=== PATIENT | male | born 1960 | race Caucasian/White ===

== ENCOUNTER 2017-01-29 06:21 | Emergency (ER) | payer OTHER ==
[~2017-01-29] VITALS: Ht 167.6 cm; Wt 62.0 kg
[~2017-01-29 06:21] MED LIST: FOLI0.8C PO; GARL200T PO; LORA-441 PO; MULT-236 PO; WHEAT GRASS
[2017-01-29 06:24] VITALS: Ht 167.6 cm; Wt 62.0 kg
--- NOTE | 2017-01-29 07:13 | ERD ---
ER Documentation Chief Complaint Date/Time DATE: 01/29/17 TIME: 07:06 Chief Complaint weakness x 1 year HPI This is a 56-year-old male no significant past medical history who presents to the emergency room because of generalized weakness and lightheadedness for 1.5 years. He states that he has had thorough investigations and evaluation through primary care physician, multiple ER visits including a ER visit the [facility] 2 weeks ago. Additionally he has seen a hospital staff pharmacist with echo and Holter. Workup has been unrevealing. The patient presents today because symptoms have been persistent. He denies any fevers or chills, no chest pain. Occasionally has palpitations when he wakes up in the morning that resolved throughout the day. He denies any melena, he states that he has had negative Hemoccult in the past. He is also describing occasional headaches that are occipital but not present currently. Not sudden onset. He is a non- smoker, no significant weight loss. The patient states that he feels weak when doing regular activities like going to the grocery store. He states negative thyroid testing as an outpatient as well. ROS All systems reviewed and are negative except as per history of present illness. Medications Home Meds Reported Medications Lorazepam* (Ativan*) 0.5 Mg Tablet, 0.5 MG PO BID Y for CHEST PAIN, #30 TAB 12/02/15 [Wheat Grass] No Conflict Check 12/02/15 Garlic (GARLIC) 200 Mg Tablet, 200 MG PO, TAB 12/02/15 Folic Acid (Folic Acid) 0.8 Mg Capsule, 0.8 MG PO, CAP 12/02/15 Multivitamins (Multi-Day Vitamin) 1 Tab Tablet, 1 TAB PO DAILY, TAB 12/02/15 Allergies Allergies: Coded Allergies: No Known Allergy (Unverified , 12/02/15) PMhx/Soc History of Surgery: Yes (1970 SX RT. KNEE, 1970 SX LT HAND, AT [facility]) Anesthesia Reaction: No Hx Neurological Disorder: No Hx Respiratory Disorders: No Hx Cardiac Disorders: Yes (HRT PALPATATIONS , HTN ) Hx Psychiatric Problems: No Hx Miscellaneous Medical Probl: No Hx Alcohol Use: No Hx Substance Use: No Hx Tobacco Use: No Smoking Status: Never smoker FmHx Family History: No diabetes Physical Exam Vitals Vital Signs Date Time Temp Pulse Resp B/P Pulse Ox O2 Delivery O2 Flow Rate FiO2 01/29/17 06:24 97.8 80 20 166/82 100 Physical Exam General: Thin, no significant distress, slightly anxious Head: Normocephalic, atraumatic. Eyes: Pupils equally reactive, EOM intact ENT: Moist mucous membranes Neck: Supple, no lymphadenopathy Respiratory: Lungs clear bilaterally, no distress Cardiovascular: RRR, no murmurs, rubs, or gallops Abdominal: Soft, non-tender, non-distended, no peritoneal signs : Deferred MSK: No edema, no unilateral swelling, 5/5 strength Neurologic: Alert and oriented, moving all extremities, normal speech, no focal weakness, no cerebellar signs Skin: No rash Psych:Slightly anxious, no distress no depression Result Diagram: 01/29/17 0709 01/29/17 0709 Results 24 hrs Laboratory Tests Test 01/29/17 07:09 White Blood Count 5.410^3/ul Red Blood Count 4.6210^6/ul Hemoglobin 14.6g/dl Hematocrit 42.5% Mean Corpuscular Volume 92.0fl Mean Corpuscular Hemoglobin 31.6pg Mean Corpuscular Hemoglobin Concent 34.4g/dl Red Cell Distribution Width 13.0% Platelet Count 92317^3/UL Mean Platelet Volume 9.5fl Neutrophils % 58.2% Lymphocytes % 27.9% Monocytes % 11.3% Eosinophils % 1.5% Basophils % 0.9% Nucleated Red Blood Cells % 0.0/100WBC Neutrophils # 3.210^3/ul Lymphocytes # 1.510^3/ul Monocytes # 0.610^3/ul Eosinophils # 0.110^3/ul Basophils # 0.110^3/ul Nucleated Red Blood Cells # 0.010^3/ul Sodium Level 141mmol/L Potassium Level 4.1mmol/L Chloride Level 104mmol/L Carbon Dioxide Level 31mmol/L Anion Gap 10 Blood Urea Nitrogen 6mg/dl Creatinine 0.85mg/dl Glucose Level 98mg/dl Calcium Level 10.1mg/dl Total Bilirubin 0.6mg/dl Direct Bilirubin 0.00mg/dl Indirect Bilirubin 0.6mg/dl Aspartate Amino Transf (AST/SGOT) 23IU/L Alanine Aminotransferase (ALT/SGPT) 40IU/L Alkaline Phosphatase 55IU/L Troponin I < 0.012ng/ml Total Protein 7.1g/dl Albumin 4.3g/dl Globulin 2.80g/dl Albumin/Globulin Ratio 1.53 Procedures/MDM My EKG, MONITORS, & DIAGNOSTIC IMAGING: EKG: I reviewed and interpreted a 12-lead EKG. Rhythm: Normal sinus rhythm Ectopy: None Intervals: No abnormalities ST segments: No elevations or depressions T waves: No contiguous inversions CT brain: CT is down. LAB INTERPRETATION: No leukocytosis, normal electrolytes, normal troponin MEDICAL DECISION MAKING: The patient presents with generalized weakness and lightheadedness for approximately 1.5 years. The patient appears to have had thorough evaluations and workups including negative basic blood work, thyroid testing, cardiac evaluation. At this point it is unclear what is causing this patient's symptoms. He exhibits no signs of symptoms of acute pathology that would be concerning for acute blood loss, cardiac etiology or stroke. The patient is describing a mild headache and has not had a CT of the brain. CT to rule out mass would be reasonable at this point. Considerations at this point are autoimmune processes, malignancy. Outpatient testing is required and referral back to his primary care physician is absolutely necessary. I offered repeat blood testing and CT brain to the patient who is agreeable at this time. If workup is negative the patient will be referred back to his primary care physician. ER COURSE: The patient's laboratory testing is unrevealing. He remains resting comfortably. Unfortunately at this time our CT scanner is down indefinitely. I discussed multiple options including waiting for CAT scan to be up, use of transfer to [facility] based on her protocols for CT imaging but this could take multiple hours or outpatient follow-up with primary care physician. Given the chronicity of his symptoms I do not feel that a CT scan is imperative during this ER visit. I discussed outpatient options including primary care follow-up, CT or MRI as an outpatient. The patient prefers to perform this as an outpatient. He does not want to wait for the CAT scan. The patient understands return precautions including worsening symptoms. Outpatient testing for possible autoimmune disease process versus malignancy would also be reasonable. I kept the patient and/or family informed of laboratory and diagnostic imaging results throughout the emergency room course. DISPOSITION PLAN: We discussed follow up with the patient's primary care doctor within 24 to 48 hours as needed. We also discussed return to the emergency room for worsening symptoms or worsening condition. Outpatient referral: [None required] Departure Diagnosis: Primary Impression: Generalized weakness Condition: Stable NATALIYA MCDAINEL MD Jan 29, 2017 07:13
[2017-01-29 07:34] LABS: BASOPHIL # 0.1 10^3/ul (0.0-0.1); BASOPHILS % 0.9 % (0.0-2.0); EOSINOPHILS # 0.1 10^3/ul (0.0-0.5); EOSINOPHILS % 1.5 % (0.0-7.0); HEMATOCRIT 42.5 % (42.0-52.0); HEMOGLOBIN 14.6 g/dl (14.0-18.0); LYMPHOCYTES # 1.5 10^3/ul (0.8-2.9); LYMPHOCYTES % 27.9 % (15.0-51.0); MEAN CORPUSCULAR HEMOGLOBIN 31.6 pg (29.0-33.0); MEAN CORPUSCULAR HGB CONC 34.4 g/dl (32.0-37.0); MEAN PLATELET VOLUME 9.5 fl (7.4-10.4); MONOCYTE # 0.6 10^3/ul (0.3-0.9); MONOCYTES % 11.3 % (0.0-11.0); NEUTROPHIL # 3.2 10^3/ul (1.6-7.5); NEUTROPHILS % 58.2 % (39.0-77.0); PLATELET COUNT 260 10^3/UL (140-415); RED BLOOD COUNT 4.62 10^6/ul (4.70-6.10); WHITE BLOOD COUNT 5.4 10^3/ul (4.8-10.8)
[2017-01-29 08:03] LABS: ALANINE AMINOTRANSFERASE 40 IU/L (13-69); ALBUMIN 4.3 g/dl (3.3-4.9); ALBUMIN/GLOBULIN RATIO 1.53; ALKALINE PHOSPHATASE 55 IU/L (42-121); ANION GAP 10 (8-16); ASPARTATE AMINO TRANSFERASE 23 IU/L (15-46); BILIRUBIN,INDIRECT 0.6 mg/dl (0-1.1); BILIRUBIN,TOTAL 0.6 mg/dl (0.2-1.3); BLOOD UREA NITROGEN 6 mg/dl (7-20); CALCIUM 10.1 mg/dl (8.4-10.2); CARBON DIOXIDE 31 mmol/L (21-31); CHLORIDE 104 mmol/L (97-110); CREATININE 0.85 mg/dl (0.61-1.24); GLUCOSE 98 mg/dl (70-220); POTASSIUM 4.1 mmol/L (3.5-5.1); SODIUM 141 mmol/L (135-144); TOTAL PROTEIN 7.1 g/dl (6.1-8.1)
[2017-01-29 08:15] LABS: TROPONIN-I < 0.012 ng/ml (0.00-0.12)
[2017-01-29 09:25] VITALS: BP 152/78; PULSE 66; RESP 20; TEMP 98.1
== END 2017-01-29 09:25 | disposition home or self-care (01) ==
LOC: E/R 06:21
DX: R53.1 Weakness (principal); I10 Essential (primary) hypertension; R40.2142 Coma scale, eyes open, spontaneous, at arrival to emergency department; R40.2252 Coma scale, best verbal response, oriented, at arrival to emergency department; R40.2362 Coma scale, best motor response, obeys commands, at arrival to emergency department
CPT/HCPCS: 36415; 80053; 84484; 85025; 93005; Z7502

== ENCOUNTER 2017-11-20 07:17 | Day surgery (SDC) | END 2017-11-20 16:15 | disposition home or self-care (01) ==

== ENCOUNTER 2018-01-25 07:13 | Emergency (ER) | END 2018-01-25 08:50 | disposition home or self-care (01) ==

== ENCOUNTER 2018-04-29 07:28 | Emergency (ER) | END 2018-04-29 09:47 | disposition home or self-care (01) ==